=== PATIENT | male | born 1995 | race Caucasian/White ===

== ENCOUNTER 2023-02-28 10:43 | Emergency (ER) | payer OTHER, SELFPAY ==
--- OUTSIDE RECORDS SUMMARY | 2023-02-28 10:45 | XMS REPORT | Continuity of Care Document ---
:1995 Author Organization [facility] t Address [address] [address] Care Team Providers Name Role Phone aCrmen Cheng Attending Clinician Unavailable Problems This patient has no known problems. Allergies, Adverse Reactions, Alerts This patient has no known allergies or adverse reactions. Medications This patient has no known medications. Procedures This patient has no known procedures. Encounters Start End Encounter Admission Attending Care Care Encounter Source Date/Time Date/Time Type Type Clinicians Facility Department ID 2023-02-[address] [facility] [id number] Common 14:39:01 Carmen [id number] [facility] Results This patient has no known results.
--- NOTE | 2023-02-28 11:35 | RAD REPORT ---
EXAM DESCRIPTION: RAD - Lumbar Spine 3 Views - 02/28/2023 11:23 am CLINICAL HISTORY: LOWER BACK PAIN Radiculopathy COMPARISON: No comparisons FINDINGS: Vertebral body heights appear maintained. No compression fracture noted. Mild disc thinnin g is present lower lumbar levels. No spondylolysis or spondylolisthesis. IMPRESSION: Minimal disc thinning seen lower lumbar levels, otherwise negative study.
--- NOTE | 2023-02-28 11:49 | RAD REPORT ---
EXAM DESCRIPTION: RAD - Knee Right 3 View - 02/28/2023 11:32 am CLINICAL HISTORY: PAIN COMPARISON: No comparisons FINDINGS: No fracture or dislocation seen. No joint effusion evident. Small osteochondroma likely pr esent medial proximal tibia.
[2023-02-28] MEDS ORDERED: KETOROLAC 30 MG/ML INJ ONE (12:21)
[2023-02-28] MEDS ORDERED: dexAMETHasone 10 MG/ML VIAL ONE (12:21)
--- NOTE | 2023-02-28 12:40 | ER ---
Nurse's Notes [facility] Name: Eligio Santoyo Age: 27 yrs Sex: Male : 1995 Arrival Date: 02/28/2023 Time: 10:43 Bed DX5 Private MD: Diagnosis: Sprain of other specified parts of right knee;Lumbago with sciatica Presentation: 02/28 10:51 Chief complaint: Patient states: back pain X 2 weeks now after pulling a muscle , was iw prescribed muscle relaxer, has been doing stretches, but the pain is still there, then about a wee ago I stepped down off a machine and my right knee gave out and last night there was a big pop and it feels sore. Coronavirus screen: At this time, the client does not indicate any symptoms associated with coronavirus-19. Ebola Screen: Patient negative for fever greater than or equal to 101.5 degrees Fahrenheit, and additional compatible Ebola Virus Disease symptoms Patient denies exposure to infectious person. Patient denies travel to an Ebola-affected area in the 21 days before illness onset. No symptoms or risks identified at this time. Initial Sepsis Screen: Does the patient meet any 2 criteria? No. Patient's initial sepsis screen is negative. Does the patient have a suspected source of infection? No. Patient's initial sepsis screen is negative. Risk Assessment: Do you want to hurt yourself or someone else? Patient reports no desire to harm self or others. Onset of symptoms was February 21, 2023. 10:51 Method Of Arrival: Ambulatory iw 10:51 Acuity: ROB 4 iw Historical: - Allergies: 10:53 Vancomycin; iw - PMHx: 10:53 Asthma; iw - PSHx: 10:53 Knee - Left; iw - Immunization history:: Adult Immunizations not up to date. - Social history:: Smoking status: Reported history of juuling and/or vaping. Screenin:57 [facility] ED Fall Risk Assessment (Adult) History of falling in the last 3 months, iw including since admission Yes- single mechanical fall (1 pt) Score/Fall Risk Level. Abuse screen: Denies threats or abuse. Denies injuries from another. Nutritional screening: No deficits noted. Tuberculosis screening: No symptoms or risk factors identified. Assessment: 10:57 General: Appears in no apparent distress. Behavior is calm, cooperative. Pain: iw Complains of pain in back and right knee. Neuro: Level of Consciousness is awake, alert, obeys commands, Oriented to person, place, time, situation, Moves all extremities. Cardiovascular: Patient's skin is warm and dry. Respiratory: Respiratory effort is even, unlabored, Respiratory pattern is regular, symmetrical. GI: No signs and/or symptoms were reported involving the gastrointestinal system. Derm: Skin is intact, is healthy with good turgor. Musculoskeletal: Range of motion: limited in right knee. Vital Signs: 10:51 BP 154 / 106; Pulse 71; Resp 16; Temp 97.8; Pulse Ox 100% on R/A; Weight 127.01 kg; iw Height 5 ft. 11 in. ; Pain 8/10; 13:00 Pain 5/10; jl7 13:04 BP 163 / 83; Pulse 70; Resp 15; Temp 97; Pulse Ox 95% ; Pain 5/10; jl7 13:05 Pain 5/10; jl7 10:51 Body Mass Index 39.05 (127.01 kg, 180.34 cm) iw 10:51 Pain Scale: Adult iw 13:00 Pain Scale: Adult jl7 13:04 Pain Scale: Adult jl7 13:05 Pain Scale: Adult jl7 ED Course: 10:46 Patient arrived in ED. mg5 10:47 Shannon Jorgensen PA-C is PHCP. sb4 10:47 Jesusita Arteaga MD is Attending Physician. sb4 10:53 Triage completed. iw 10:53 Arm band placed on. iw 10:58 Patient has correct armband on for positive identification. iw 11:25 Lumbar Spine (3 Views) XRAY In Process Unspecified. EDMS 11:34 Knee Right 3 View XRAY In Process Unspecified. EDMS 11:51 Candace Lorenz, RIZWANA is Primary Nurse. jl7 12:38 Jorge Maguire MD is Referral Physician. sb4 13:06 No provider procedures requiring assistance completed. Patient did not have IV access jl7 during this emergency room visit. Administered Medications: 12:20 Drug: Dexamethasone IM 10 mg IM once Route: IM; Site: left deltoid; jl7 13:00 Follow up: Pain 5/10 Adult; Response: No adverse reaction; Pain is decreased jl7 12:23 Drug: Ketorolac IM 30 mg IM once Route: IM; Site: right deltoid; jl7 13:05 Follow up: Pain 08/28 Adult; Response: No adverse reaction; Pain is decreased jl7 Medication: 10:57 VIS not applicable for this client. iw Outcome: 12:39 Discharge ordered by . sb4 13:06 Discharged to home ambulatory, jl7 13:06 Condition: stable 13:06 Discharge instructions given to patient, Instructed on discharge instructions, follow up and referral plans. medication usage, Demonstrated understanding of instructions, follow-up care, medications, Prescriptions given X 2, 13:06 Patient left the ED. jl7 Signatures: Dispatcher [employer] EDJess Arenas RN RN iw Candace Lorenz RN RN jl7 Shannon Jorgensen, PA-C PA-C sb4 Rekha Mauro 5
--- NOTE | 2023-02-28 12:40 | EDPHYS ---
Physician Documentation [facility] Name: Eligio Santoyo Age: 27 yrs Sex: Male : 1995 Arrival Date: 02/28/2023 Time: 10:43 Bed DX5 Private MD: ED Physician Jesusita Arteaga HPI: 02/28 11:05 This 27 yrs old Male presents to ER via Ambulatory with complaints of Back Pain, Knee sb4 Pain. 11:05 Patient states that he strained his lower back about 3 weeks ago. He saw his PCP sb4 shortly after who prescribed muscle relaxants. He states that he has been doing the exercises to help strengthen his back but it is still causing him pain. He states the pain is worse when he sits down. Additionally, he states for the past few days his right knee has been hurting him and reports that last night he felt it pop. States that the pop actually made it feel little bit better but he wanted to have it evaluated. Historical: - Allergies: 10:53 Vancomycin; iw - PMHx: 10:53 Asthma; iw - PSHx: 10:53 Knee - Left; iw - Immunization history:: Adult Immunizations not up to date. - Social history:: Smoking status: Reported history of juuling and/or vaping. ROS: 15:23 Constitutional: Negative for fever, chills, and weight loss, sb4 15:23 Back: Positive for pain at rest, pain with movement, radiated pain, 15:23 MS/extremity: Positive for injury or acute deformity, pain, of the right knee, 15:23 All other systems are negative, Exam: 15:23 Head/Face: Normocephalic, atraumatic. Eyes: Extra-ocular motions intact. Periorbital sb4 areas with no swelling, redness, or edema. ENT: Mucous membranes moist. Cardiovascular: Regular rate and rhythm with a normal S1 and S2. Respiratory: Lungs have equal breath sounds bilaterally, clear to auscultation and percussion. No rales, rhonchi or wheezes noted. No increased work of breathing, no retractions or nasal flaring. Abdomen/GI: Soft, non-tender, no distension. Skin: Warm, dry with normal turgor. Normal color with no rashes, no lesions, and no evidence of cellulitis. Neuro: Awake and alert, GCS 15, oriented to person, place, time, and situation. Motor strength 5/5 in all extremities. Sensory grossly intact. 15:23 Back: pain, that is mild, of the lumbar area, ROM is normal, normal spinal alignment noted, CVA tenderness, is absent, muscle spasm, is appreciated in the lumbar area, Straight leg raises: of both lower extremities does not illicit pain, 15:23 Musculoskeletal/extremity: full ROM in right knee. mild tenderness surrounding the patella on medial and lateral aspect. pain worse going up steps. 15:23 Neuro: Orientation: is normal, appropriate for stated age, to person, place, time \T\ situation. Mentation: is normal, appropriate for stated age, Motor: is normal, Sensation: is normal, Gait: is steady, appropriate for age, 15:23 Constitutional: The patient appears in no acute distress, alert, awake, obese, sb4 Vital Signs: 10:51 BP 154 / 106; Pulse 71; Resp 16; Temp 97.8; Pulse Ox 100% on R/A; Weight 127.01 kg; iw Height 5 ft. 11 in. ; Pain 8/10; 13:00 Pain 5/10; jl7 13:04 BP 163 / 83; Pulse 70; Resp 15; Temp 97; Pulse Ox 95% ; Pain 5/10; jl7 13:05 Pain 5/10; jl7 10:51 Body Mass Index 39.05 (127.01 kg, 180.34 cm) iw 10:51 Pain Scale: Adult iw 13:00 Pain Scale: Adult jl7 13:04 Pain Scale: Adult jl7 13:05 Pain Scale: Adult jl7 MDM: 11:02 Patient medically screened. sb4 15:23 Differential diagnosis: Fracture Obesity Renal Infarction ruptured disc, sprain, sb4 vertebral fracture. Data reviewed: vital signs, nurses notes, radiologic studies, and as a result, I will discharge patient. Care significantly affected by the following chronic conditions: Obesity. Counseling: I had a detailed discussion with the patient and/or guardian regarding the historical points, exam findings, and any diagnostic results supporting the discharge/admit diagnosis, radiology results, the need for outpatient follow up, a orthopedic surgeon, to return to the emergency department if symptoms worsen or persist or if there are any questions or concerns that arise at home. 02/28 11:02 Order name: Lumbar Spine (3 Views) XRAY; Complete Time: 11:36 sb4 02/28 11:02 Order name: Knee Right 3 View XRAY; Complete Time: 11:52 sb4 Administered Medications: 12:20 Drug: Dexamethasone IM 10 mg IM once Route: IM; Site: left deltoid; jl7 13:00 Follow up: Pain 5/10 Adult; Response: No adverse reaction; Pain is decreased jl7 12:23 Drug: Ketorolac IM 30 mg IM once Route: IM; Site: right deltoid; jl7 13:05 Follow up: Pain 5/10 Adult; Response: No adverse reaction; Pain is decreased jl7 Disposition Summary: 02/28/23 12:39 Discharge Ordered Notes: Location: Home sb4 Problem: an ongoing problem sb4 Symptoms: have improved sb4 Condition: Stable sb4 Diagnosis - Sprain of other specified parts of right knee sb4 - Lumbago with sciatica sb4 Followup: sb4 - With: Jorge Maguire MD - When: As needed - Reason: Further diagnostic work-up, Recheck today's complaints, Re-evaluation by your physician Discharge Instructions: - Discharge Summary Sheet sb4 - Knee Sprain, Adult, [id number] sb4 - Low Back Sprain or Strain Rehab sb4 Forms: - Medication Reconciliation Form sb4 - Thank You Letter sb4 - Antibiotic Education sb4 - Prescription Opioid Use sb4 - Patient Portal Instructions sb4 - Leadership Thank You Letter sb4 Prescriptions: - Tramadol 50 mg Oral Tablet - take 1 tablet ORAL route every 8 hours as needed; 12 tablet; Refills: 0, sb4 Product Selection Permitted - Medrol (Gulshan) 4 mg Oral Tablets, Dose Pack - take 1 tablet ORAL route as directed - follow package instructions; 1 packet; sb4 Refills: 0, Product Selection Permitted Signatures: Dispatcher [employer] Jess White RN RN iw Leal, Jahala, RN RN [email or web address] Shannon Jorgensen PA-C PA-C sb4 Corrections: (The following items were deleted from the chart) 15:24 11:05 Patient states that he strained his lower back about 3 weeks ago. He saw his PCP sb4 shortly after. sb4
[2023-02-28 13:15] VITALS: BP 163/83; TEMP 97; O2SAT 95
== END 2023-02-28 13:06 | disposition home or self-care (01) ==
LOC: ER 10:43
DX: S83.8X1A Sprain of other specified parts of right knee, initial encounter (principal); M54.40 Lumbago with sciatica, unspecified side; Z88.3 Allergy status to other anti-infective agents
CPT/HCPCS: 72100; 73562; 96372; 99284; J1100

== ENCOUNTER 2023-03-30 18:33 | Emergency (ER) | payer OTHER ==
--- OUTSIDE RECORDS SUMMARY | 2023-03-30 18:38 | XMS REPORT | Continuity of Care Document ---
Author Name Unknown Address [address] [facility] [address] [id number] [facility] thconnect Address [address] [facility] [address] [place] [address] Care Team Providers Care Regulatory And Compliance Technician Name Role Phone Carmen Cheng Attending Clinician Unavail able Encounters Start Date/Time End Date/Time Encounter Type Admission Type Attending Clinicians Care Facility Care Department Encounter ID Source 2023-03-19 14:22:02 Outpatient Carmen Cheng [facility] [id number] [facility] 2023-03-18 09:31:01 Outpatient Carmen Cheng [facility] [id number] [facility] 2023-03-12 10:46:00 Outpatient Carmen Cheng [facility] [id number] [facility] 2023-02-12 14:39:01 Outpatient Carmen Cheng [facility] [id number] [facility]
[2023-03-30] MEDS ORDERED: ASPIRIN 81 MG CHEWABLE TABLET ONE (19:48)
[2023-03-30] MEDS ORDERED: MORPHINE 4 MG/ML SYR ONE (19:49)
[2023-03-30 20:19] LABS: Protime INR 1.02
--- NOTE | 2023-03-30 20:32 | RAD REPORT ---
EXAM DESCRIPTION: RAD - Chest Single View - 03/30/2023 8:10 pm CLINICAL HISTORY: left side chest pain Chest pain. COMPARISON: <Comparisons> FINDINGS: Portable technique limits examination quality. The lungs are grossly clear. The heart is normal in size. No displaced fractures. IMPRESSION: No acute intrathoracic process suspected.
[2023-03-30 20:34] LABS: Absolute Lymphocytes (CBC) 2.4 K/uL (0.7-4.9); Hematocrit 43.5 % (39.6-49.0); Lymphocytes % 25.6 % (15.3-44.8); MCV 84.1 fL (80-100); MPV 8.1 fL (7.6-11.3); Platelets 198 thou/uL (152-406); RBC Red Blood Cell Count 5.17 M/uL (4.33-5.43)
[2023-03-30 20:36] LABS: ALT/SGPT 54 U/L (16-61); AST/SGOT 32 U/L (15-37); Alkaline Phosphatase 40 U/L (45-117); BUN Blood Urea Nitrogen 14 mg/dL (7-18); Bicarbonate 26 mEq/L (21-32); Bilirubin Direct < 0.1 mg/dL (0-0.2); Bilirubin Indirect, Calculated ND mg/dL (0.2-0.8); Bilirubin Total 0.5 mg/dL (0.2-1.0); Glomerular Filtration Rate 126 ml/min (=/>90); Glucose Level 106 mg/dL (74-106); NT PRO-BNP 19 pg/mL (<125); Potassium 3.8 mEq/L (3.5-5.1); Sodium Level 135 mEq/L (136-145); Troponin High Sensitivity 10.2 pg/mL (<58.9)
--- NOTE | 2023-03-30 21:29 | RAD REPORT ---
EXAM DESCRIPTION: CT - Angio Aorta For Dissection - 03/30/2023 9:20 pm CLINICAL HISTORY: Chest pain radiating to the back. chest pain COMPARISON: <Comparisons> TECHNIQUE: CT angiography of the aorta was performed with MIPs. All CT scans are performed using dose optimization technique as appropriate and may include automated exposure control or mA/KV adjustment according to patient size. FINDINGS: A left aortic arch is present with normal branching pattern of the great vessels.No acute aortic finding is seen such as aneurysm, penetrating ulcer or dissection. The celiac axis, SMA, JUVE and renal arteries are patent. No evidence of pulmonary embolism. The lungs are clear. The liver demonstrates no focal mass or biliary dilatation.Prominent fatty liver is present.The splee n, pancreas, adrenal glands and kidneys are within normal limits for arterial phase imaging. No bowel obstruction, free fluid or abscess.No evidence of appendicitis.No pathologic enlarged lympha denopathy identified.Small fat containing umbilical hernia. No fracture or worrisome bone lesion seen. IMPRESSION: No acute aortic finding is demonstrated. Prominent diffuse fatty liver.
--- NOTE | 2023-03-30 22:48 | EDPHYS ---
Physician Documentation [facility] Name: Eligio Santoyo Age: 27 yrs Sex: Male : 1995 Arrival Date: 03/30/2023 Time: 18:33 Bed 4 Private MD: ED Physician Ryley Morin HPI: 03/30 19:05 This 27 yrs old Male presents to ER via Ambulatory with complaints of High Blood cp Pressure, Palpitations, Left Side Tingling. 19:05 The patient or guardian reports chest pain that is located primarily in the anterior cp chest wall, left. 19:05 Duration: The patient or guardian reports a single episode, that is still ongoing. cp 19:05 The chest pain is described as a pressure. Patient is a 27-year-old male with past cp medical history significant for asthma and hypertension. Patient presents to the emergency department with complaints of tingling that started in left hand and radiated up the left arm and into the chest. Started having some pain in his left arm and left side of his chest that continues here in the emergency department. Patient reports symptoms started about 45 minutes ago. He noticed some tunnel vision and he felt like his heart was racing. Historical: - Allergies: 19:03 Vancomycin; iw - PMHx: 19:03 Asthma; Hypertensive disorder; iw - PSHx: 19:03 Knee - Left; iw - Immunization history:: Client reports having NOT received the Covid vaccine. - Social history:: Smoking status: Reported history of juuling and/or vaping. ROS: 19:10 Constitutional: Negative for body aches, chills, fever, cp 19:10 Cardiovascular: Positive for chest pain, palpitations, Negative for edema, cp 19:10 Eyes: Negative for injury, pain, redness, and discharge, cp 19:10 ENT: Negative for drainage from ear(s), ear pain, sore throat, difficulty swallowing, difficulty handling secretions, 19:10 Respiratory: Negative for cough, shortness of breath, wheezing, 19:10 Abdomen/GI: Negative for abdominal pain, vomiting, diarrhea, constipation, 19:10 Back: Positive for radiated pain, Negative for injury or acute deformity, decreased range of motion, 19:10 : Negative for urinary symptoms, 19:10 Neuro: Positive for tingling, of the left hand and left arm, left side of chest, Negative for speech changes, syncope, near syncope, 19:10 All other systems are negative, Exam: 19:15 Constitutional: The patient appears in no acute distress, alert, awake, cp non-diaphoretic, non-toxic, well developed, well nourished, obese, 19:15 Head/Face: Normocephalic, atraumatic. cp 19:15 Eyes: Periorbital structures: appear normal, Pupils: Extraocular movements: intact throughout, Conjunctiva: normal, no exudate, no injection, Sclera: no appreciated abnormality, Lids and lashes: appear normal, bilaterally, 19:15 ENT: External ear(s): are unremarkable, Nose: is normal, Mouth: Lips: moist, Oral mucosa: pink and intact, moist, Posterior pharynx: is normal, airway is patent, no erythema, no exudate, 19:15 Neck: ROM/movement: is normal, is supple, without pain, no range of motions limitations, 19:15 Chest/axilla: Inspection: normal, Palpation: is normal, no crepitus, no tenderness, 19:15 Cardiovascular: Rate: tachycardic, Rhythm: regular, 19:15 Respiratory: the patient does not display signs of respiratory distress, Respirations: cp normal, no use of accessory muscles, no retractions, labored breathing, is not present, Breath sounds: are clear throughout, no decreased breath sounds, no stridor, no wheezing, 19:15 Abdomen/GI: Inspection: obese Palpation: abdomen is soft and non-tender, in all cp quadrants, 19:15 Back: pain, that is mild, ROM is normal, 19:15 Neuro: Orientation: to person, place \T\ time. Mentation: is normal, Cerebellar function: is grossly normal, Motor: moves all fours, strength is normal, Sensation: no obvious gross deficits, 19:25 ECG was reviewed by the Attending Physician. cp Vital Signs: 18:58 BP 148 / 101; Pulse 104; Resp 17; Temp 98.6; Pulse Ox 99% ; Weight 145.15 kg; Height 5 iw ft. 11 in. ; Pain 6/10; 20:18 BP 130 / 79; Pulse 87; Resp 19; Pulse Ox 98% on R/A; jb4 22:05 BP 144 / 89; Pulse 87; Resp 20; Pulse Ox 99% on R/A; jb4 22:57 BP 149 / 89; Pulse 82; Resp 16; Pulse Ox 98% on R/A; jb4 18:58 Body Mass Index 44.63 (145.15 kg, 180.34 cm) iw 18:58 Pain Scale: Adult iw MDM: 19:08 Patient medically screened. cp 19:52 Differential diagnosis: abnormal EKG, acute myocardial infarction, acute pericarditis, cp pericarditis, pleurisy, pneumonia, pneumothorax, pulmonary embolus, thoracic aortic disection. 22:47 Data reviewed: vital signs, nurses notes, lab test result(s), EKG, radiologic studies, cp CT scan, plain films. 22:47 Consideration of Admission/Observation Escalation of care including cp admission/observation considered. I considered the following discharge prescriptions or medication management in the emergency department Medications were administered in the Emergency Department. See MAR. Independent interpretation of the following test(s) in the Emergency Department EKG: See my EKG interpretation above. Care significantly affected by the following chronic conditions: Hypertension. Counseling: I had a detailed discussion with the patient and/or guardian regarding the historical points, exam findings, and any diagnostic results supporting the discharge/admit diagnosis, lab results, radiology results, the need for outpatient follow up, a family practitioner, to return to the emergency department if symptoms worsen or persist or if there are any questions or concerns that arise at home. Response to treatment: the patient's symptoms have markedly improved after treatment, and as a result, I will discharge patient. 03/30 19:00 Order name: Basic Metabolic Panel; Complete Time: 20:46 cp 12 20:46 Interpretation: Normal except: NA 135. cp 03/30 19:00 Order name: CBC with Diff; Complete Time: 20:46 cp 03/30 19:00 Order name: D-Dimer; Complete Time: 20:46 cp 03/30 19:00 Order name: LFT's; Complete Time: 20:46 cp 1210 20:47 Interpretation: Normal except: ALK 40; GLOB 4.0; A/G 1.0. cp 03/30 19:00 Order name: Magnesium; Complete Time: 20:46 cp 03/30 19:00 Order name: NT PRO-BNP; Complete Time: 20:46 cp 03/30 19:00 Order name: PT-INR; Complete Time: 20:46 cp 03/30 19:00 Order name: Troponin HS; Complete Time: 20:46 cp 03/30 21:32 Interpretation: Reviewed. cp 03/30 22:01 Order name: Troponin HS; Complete Time: 22:45 cp 03/30 22:45 Interpretation: Reviewed. cp 03/30 19:00 Order name: XRAY Chest (1 view); Complete Time: 20:46 cp 03/30 20:48 Order name: CT Aorta for Dissection; Complete Time: 21:31 cp 03/30 19:00 Order name: EKG; Complete Time: 19:01 cp 03/30 19:00 Order name: Cardiac monitoring; Complete Time: 19:48 cp 03/30 19:00 Order name: EKG - Nurse/Tech; Complete Time: 19:23 cp 03/30 19:00 Order name: IV Saline Lock; Complete Time: 20:08 cp 03/30 19:00 Order name: Labs collected and sent; Complete Time: 20:02 cp 03/30 19:00 Order name: O2 Per Protocol; Complete Time: 19:48 cp 03/30 19:00 Order name: O2 Sat Monitoring; Complete Time: 19:48 cp EC:25 Rate is 90 beats/min. Rhythm is regular. ND interval is normal. QRS interval is normal. cp QT interval is normal. T waves are Inverted in leads III, aVR. Interpreted by me. Reviewed by me. Administered Medications: 19:45 Drug: Aspirin PO Chewable Tablet 324 mg PO once; 81 mg tablets x 4 Route: PO; jb4 20:08 Drug: morphine IVP or IV 4 mg IVP once over 4 mins Route: IVP; Infused Over: 4 mins; vc1 Site: left antecubital; Disposition: 19:53 I was immediately available on-site in the Emergency Department for consultation in the ms3 care of the patient. Disposition Summary: 03/30/23 22:47 Discharge Ordered Notes: Location: Home cp Problem: new cp Symptoms: have improved cp Condition: Stable cp Diagnosis - Chest pain, unspecified cp - Paresthesia of skin cp Followup: cp - With: Private Physician - When: 2 - 3 days - Reason: Recheck today's complaints Discharge Instructions: - Discharge Summary Sheet cp - Nonspecific Chest Pain, Adult cp - Hypertension, Adult cp - Paresthesia cp - Aspirin and Your Heart cp Forms: - Medication Reconciliation Form cp - Thank You Letter cp - Antibiotic Education cp - Prescription Opioid Use cp - Patient Portal Instructions cp - Leadership Thank You Letter cp Prescriptions: - Ibuprofen 800 mg Oral Tablet - take 1 tablet ORAL route every 8 hours As needed take with food; 30 tablet; cp Refills: 0, Product Selection Permitted Signatures: Dispatcher [employer] Jess White, RIZWANA RN iw Erasmo aRjan PA PA cp Bryson, James RN RN jb4 Ryley Morin DO DO ms3 Onelia Khanna RN RN vc1
--- NOTE | 2023-03-30 22:48 | ER ---
Nurse's Notes [facility] Name[facility] Eligio Santoyo Age: 27 yrs Sex: Male : 1995 Arrival Date: 03/30/2023 Time: 18:33 Bed 4 Private MD: Diagnosis: Chest pain, unspecified;Paresthesia of skin Presentation: 03/30 18:58 Chief complaint: Patient states: Tingling left hand radiating to shoulder, chest, ear iw and down to leg on/off for about 45 minutes, along with shortness of breath, had some nausea and dizziness but have resolved. Checked vital signs at home 166/117 and pulse was 107. Coronavirus screen: Vaccine status: Patient reports being unvaccinated. Ebola Screen: Patient denies travel to an Ebola-affected area in the 21 days before illness onset. Initial Sepsis Screen: Does the patient meet any 2 criteria? HR > 90 bpm. No. Patient's initial sepsis screen is negative. Does the patient have a suspected source of infection? No. Patient's initial sepsis screen is negative. Risk Assessment: Do you want to hurt yourself or someone else? Patient reports no desire to harm self or others. Onset of symptoms was March 30, 2023 at 18:15. 18:58 Method Of Arrival: Ambulatory iw 18:58 Acuity: ROB 3 iw Historical: - Allergies: 19:03 Vancomycin; iw - PMHx: 19:03 Asthma; Hypertensive disorder; iw - PSHx: 19:03 Knee - Left; iw - Immunization history:: Client reports having NOT received the Covid vaccine. - Social history:: Smoking status: Reported history of juuling and/or vaping. Screenin:12 [facility] ED Fall Risk Assessment (Adult) History of falling in the last 3 months, jb4 including since admission No falls in past 3 months (0 pts) Confusion or Disorientation No (0 pts). Abuse screen: Denies threats or abuse. Nutritional screening: No deficits noted. Tuberculosis screening: No symptoms or risk factors identified. Assessment: 20:12 General: Appears in no apparent distress. comfortable, Behavior is calm, cooperative, jb4 appropriate for age. Pain: Complains of pain in anterior aspect of left upper chest Pain radiates to right low back, left arm and left leg Pain currently is 6 out of 10 on a pain scale. Quality of pain is described as aching. Neuro: Level of Consciousness is awake, alert, obeys commands, Oriented to person, place, time, situation. Cardiovascular: Patient's skin is warm and dry. Respiratory: Airway is patent Respiratory effort is even, unlabored, Respiratory pattern is regular, symmetrical. GI: : No signs and/or symptoms were reported regarding the genitourinary system. EENT: No signs and/or symptoms were reported regarding the EENT system. Derm: Skin is intact, Skin is pink, warm \T\ dry. Musculoskeletal: Circulation, motion, and sensation intact. Range of motion: intact in all extremities. 22:05 Reassessment: Patient appears in no apparent distress at this time. Patient and/or jb4 family updated on plan of care and expected duration. Pain level reassessed. Patient is alert, oriented x 3, equal unlabored respirations, skin warm/dry/pink. 22:57 Reassessment: Patient appears in no apparent distress at this time. Patient and/or jb4 family updated on plan of care and expected duration. Pain level reassessed. Patient is alert, oriented x 3, equal unlabored respirations, skin warm/dry/pink. Vital Signs: 18:58 BP 148 / 101; Pulse 104; Resp 17; Temp 98.6; Pulse Ox 99% ; Weight 145.15 kg; Height 5 iw ft. 11 in. ; Pain 6/10; 20:18 BP 130 / 79; Pulse 87; Resp 19; Pulse Ox 98% on R/A; jb4 22:05 BP 144 / 89; Pulse 87; Resp 20; Pulse Ox 99% on R/A; jb4 22:57 BP 149 / 89; Pulse 82; Resp 16; Pulse Ox 98% on R/A; jb4 18:58 Body Mass Index 44.63 (145.15 kg, 180.34 cm) iw 18:58 Pain Scale: Adult iw ED Course: 18:42 Patient arrived in ED. mg5 18:43 Erasmo Rajan PA is PHCP. cp 18:43 Ryley Morin DO is Attending Physician. cp 19:03 Triage completed. iw 19:03 Arm band placed on right wrist. iw 19:41 Jefry Holguin, RN is Primary Nurse. jb4 20:03 Basic Metabolic Panel Sent. jr12 20:03 CBC with Diff Sent. jr12 20:03 D-Dimer Sent. jr12 20:03 LFT's Sent. jr12 20:03 Magnesium Sent. jr12 20:03 NT PRO-BNP Sent. jr12 20:03 PT-INR Sent. jr12 20:03 Troponin HS Sent. jr12 20:08 Inserted saline lock: 22 gauge in right antecubital area, using aseptic technique. vc1 20:12 XRAY Chest (1 view) In Process Unspecified. EDMS 20:12 Patient has correct armband on for positive identification. Client placed on continuous jb4 cardiac and pulse oximetry monitoring. NIBP monitoring applied. media monitor on. 21:22 CT Aorta for Dissection In Process Unspecified. EDMS 22:57 No provider procedures requiring assistance completed. IV discontinued, intact, jb4 bleeding controlled, No redness/swelling at site. Pressure dressing applied. Administered Medications: 19:45 Drug: Aspirin PO Chewable Tablet 324 mg PO once; 81 mg tablets x 4 Route: PO; jb4 20:08 Drug: morphine IVP or IV 4 mg IVP once over 4 mins Route: IVP; Infused Over: 4 mins; vc1 Site: left antecubital; Medication: 20:12 VIS not applicable for this client. jb4 Outcome: 22:47 Discharge ordered by MD. cp 22:57 Discharged to home ambulatory, with family, jb4 22:57 Condition: stable 22:57 Discharge instructions given to patient, Instructed on discharge instructions, follow up and referral plans. medication usage, Demonstrated understanding of instructions, follow-up care, medications, Prescriptions given X 1, 22:59 Patient left the ED. jb4 Signatures: Dispatcher [employer] EDJess Arenas RN RN iw Page, Corey, PA PA cp Bryson, James, RN RN jb4 Onelia Khanna RN RN vc1 Rekha Mauro mg5 Nilda Oliva jr12
[2023-03-30 23:04] VITALS: TEMP 98.6
[2023-03-30 23:09] VITALS: BP 149/89; O2SAT 98
--- NOTE | 2023-04-01 13:48 | EKG ---
Test Date: 2023-03-30 Test Time: 19:18:29 Grants Officer: NICOLE MEASUREMENT RESULTS: Intervals: Rate: 90 OR: 146 QRSD: 94 QT: 354 QTc: 433 [place]: P: 56 OR: 146 QRS: 8 T: 22 INTERPRETIVE STATEMENTS: Normal sinus rhythm Normal ECG No previous ECG available for comparison Electronically Signed On 04-01-23 13:41:20 BOOK SORTER by Dada Shay
== END 2023-03-30 22:59 | disposition home or self-care (01) ==
LOC: ER 18:33
DX: R07.89 Other chest pain (principal); R20.2 Paresthesia of skin; I10 Essential (primary) hypertension; R00.2 Palpitations; Z88.1 Allergy status to other antibiotic agents; J45.909 Unspecified asthma, uncomplicated
CPT/HCPCS: 93005; 85025; 80048; 36415; 83735; 85610; 85379; 80076; 84484 ×2; 83880; 71275; 74175; 71045; 96374; 99285; Q9967